=== PATIENT | female | born 1950 | race Caucasian/White ===

== ENCOUNTER 2022-02-09 09:16 | Emergency (ER) | payer OTHER ==
[~2022-02-09] VITALS: Ht 162.6 cm; Wt 69.9 kg
[~2022-02-09 09:16] MED LIST: NKM; Z.0.KEFLEX500 MG PO; Z.0.NORCO 7.5-3251 E PO; Z.0.NORVASC5 MG PO
[2022-02-09] MEDS ORDERED: SODIUM CHLORIDE FLUSH 10 ML SYR IV PRN (09:30)
[2022-02-09 10:57] LABS: BASOPHILS % 0.2 % (0.0-1.0); EOSINOPHILS % 0.1 % (0.0-6.0); HEMATOCRIT 45.5 % (34.2-44.1); LYMPHOCYTES # (AUTO) 1.2 (1.0-3.2); LYMPHOCYTES % 9.7 % (18.0-39.1); MEAN CORPUSCULAR HEMOGLOBIN 31.5 pg (28-32); MEAN CORPUSCULAR VOLUME 95.6 fL (81-99); MONOCYTES # (AUTO) 0.5 (0.2-0.8); MONOCYTES % 3.8 % (4.4-11.3); NEUTROPHILS # (AUTO) 10.5 (2.1-6.9); NEUTROPHILS % 85.7 % (38.7-80.0); PLATELET COUNT 269 x10e3/uL (140-360); RED BLOOD COUNT 4.76 x10e6/uL (3.6-5.1); RED CELL DISTRIBUTION WIDTH 12.3 % (11.7-14.4)
[2022-02-09 11:18] LABS: ALBUMIN 3.7 g/dL (3.5-5.0); ALBUMIN/GLOBULIN RATIO 0.8 (0.8-2.0); ANION GAP 15.1 mmol/L (8-16); CALCIUM 9.2 mg/dL (8.4-10.2); CREATININE, SERUM 0.77 mg/dL (0.57-1.11); POTASSIUM 4.1 mmol/L (3.5-5.1)
[2022-02-09] MEDS ORDERED: ULTRAM50 MG PO (13:02)
[2022-02-09 13:17] VITALS: BP 151/81
== END 2022-02-09 13:19 | disposition home or self-care (01) ==
LOC: ER 09:20
DX: S70.02XA Contusion of left hip, initial encounter (principal); R55 Syncope and collapse; W01.0XXA Fall on same level from slipping, tripping and stumbling without subsequent striking against object, initial encounter; Y93.01 Activity, walking, marching and hiking; Y92.098 Other place in other non-institutional residence as the place of occurrence of the external cause
CPT/HCPCS: 0223U; 36415; 71045; 72192; 80053; 83880; 84484; 85025; 99284